=== PATIENT | male | born 1950 | race Caucasian/White ===

== ENCOUNTER 2023-12-15 08:44 | Outpatient (CLI) | payer MEDICARE | END 2023-12-15 08:45 | disposition home or self-care (01) | LOC: BICMRI 08:44 | PROVIDERS: ATTEND Internal Medicine | DX: M47.26 Other spondylosis with radiculopathy, lumbar region (principal); M48.07 Spinal stenosis, lumbosacral region; M47.817 Spondylosis without myelopathy or radiculopathy, lumbosacral region; M43.16 Spondylolisthesis, lumbar region | CPT/HCPCS: 72148 ==